=== PATIENT | female | born 1965 | race Caucasian/White ===

== ENCOUNTER → 2017-04-28 | Outpatient (CLI) | payer OTHER | END | disposition home or self-care (01) | LOC: MA 14:16 | PROC: BH02ZZZ Plain Radiography of Bilateral Breasts (ICD-10-PCS; principal; 2017-04-28) | DX: Z12.31 Encounter for screening mammogram for malignant neoplasm of breast (principal) | CPT/HCPCS: G0202 ==

== ENCOUNTER 2017-05-05 07:14 | Day surgery (SDC) | payer OTHER ==
[~2017-05-05] VITALS: Ht 177.8 cm; Wt 102.5 kg
[2017-05-05 08:07] VITALS: BP 132/71
[2017-05-05 11:47] VITALS: BP 121/84
== END 2017-05-05 11:10 | disposition home or self-care (01) ==
LOC: GI 07:14 → OR 08:30 → GI 08:30
PROVIDERS: Internal Medicine Gastroenterology
PROC: 0DJD8ZZ Inspection of Lower Intestinal Tract, Via Natural or Artificial Opening Endoscopic (ICD-10-PCS; principal; 2017-05-05 08:30)
DX: Z12.11 Encounter for screening for malignant neoplasm of colon (principal); E11.9 Type 2 diabetes mellitus without complications; Z79.84 Long term (current) use of oral hypoglycemic drugs; Z68.33 Body mass index [BMI] 33.0-33.9, adult
CPT/HCPCS: 45378; J1200; J1610; J2250; J2310; J3010; J3490

== ENCOUNTER 2017-10-20 21:43 | Emergency (ER) | payer OTHER ==
[~2017-10-20] VITALS: Ht 177.8 cm; Wt 104.3 kg
[2017-10-20 22:14] VITALS: Ht 177.8 cm; Wt 104.3 kg
[2017-10-21 00:08] VITALS: BP 143/95
== END 2017-10-21 00:08 | disposition home or self-care (01) ==
LOC: ED 21:43
DX: S80.812A Abrasion, left lower leg, initial encounter (principal); I10 Essential (primary) hypertension; E11.9 Type 2 diabetes mellitus without complications; W45.8XXA Other foreign body or object entering through skin, initial encounter; Y93.89 Activity, other specified; Y92.89 Other specified places as the place of occurrence of the external cause; Y99.8 Other external cause status

== ENCOUNTER 2017-10-27 09:53 | Inpatient (IN) | payer OTHER ==
[~2017-10-27] VITALS: Ht 177.8 cm; Wt 105.3 kg
[2017-10-27 11:37] LABS: BASOPHIL % 0.6 % (0-2); PLATELET COUNT 259 x10^3mcL (130-400); RED CELL DISTRIBUTION WIDTH 12.8 % (11.5-14.5)
[2017-10-27 11:43] LABS: CALCIUM 8.4 mg/dL (8.5-10.1); CARBON DIOXIDE 23.6 mmol/L (21-32); CHLORIDE SERUM 101 mmol/L (98-107); CREATININE SERUM 0.8 mg/dL (0.6-1.0); GFR1 > 60 mL/min; GLUCOSE SERUM 373 mg/dL (74-106); POTASSIUM SERUM 4.2 mmol/L (3.5-5.1); SODIUM SERUM 133 mmol/L (136-145)
[2017-10-27 11:48] LABS: ALBUMIN 2.8 g/dL (3.4-5.0); ALKALINE PHOSPHATASE 113 U/L (46-116); ALT/SGPT 17 U/L (14-59); AST/SGOT 8 U/L (15-37); BILIRUBIN TOTAL 0.3 mg/dL (0.20-1.00); CHOLESTEROL 227 mg/dL (<200); HDL CHOLESTEROL 74 mg/dL (40-60); TOTAL PROTEIN, SERUM 6.8 g/dL (6.4-8.2)
[2017-10-27] MEDS ORDERED: METFORMIN HCL500 MG PO (11:49)
[2017-10-27] MEDS ORDERED: METFORMIN HCL1000 MG PO (11:51)
[2017-10-27] MEDS ORDERED: CEPHALEXIN500 M1 PO (11:52)
[2017-10-27 12:13] LABS: T3 TOTAL 0.79 ng/mL
[2017-10-27 13:22] VITALS: BP 155/82
[2017-10-27 13:28] VITALS: Ht 177.8 cm; Wt 105.3 kg
[2017-10-27 14:17] LABS: MAGNESIUM 1.6 mg/dL (1.8-2.4); PHOSPHOROUS 3.5 mg/dL (2.5-4.9)
[2017-10-27 14:18] LABS: CHOLESTEROL/HDL RATIO 3.1
[2017-10-27 14:22] LABS: FREE T4 1.11 ng/dL (0.76-1.46); FREE THYROXINE INDEX 3.3 ug/dL (1.4-4.5); T4(THYROXINE) 8.7 ug/dL (4.7-13.3)
[2017-10-27 17:00] VITALS: BP 113/75
[2017-10-27 20:35] VITALS: BP 117/76
[2017-10-28 05:41] VITALS: BP 129/78
[2017-10-28 06:45] LABS: CALCIUM 8.7 mg/dL (8.5-10.1); CHLORIDE SERUM 106 mmol/L (98-107); CREATININE SERUM 0.6 mg/dL (0.6-1.0); GFR1 > 60 mL/min; GLUCOSE SERUM 150 mg/dL (74-106); MAGNESIUM 1.9 mg/dL (1.8-2.4); POTASSIUM SERUM 4.6 mmol/L (3.5-5.1); SODIUM SERUM 139 mmol/L (136-145)
[2017-10-28 06:55] LABS: PLATELET COUNT 312 x10^3mcL (130-400); RED CELL DISTRIBUTION WIDTH 12.8 % (11.5-14.5)
[2017-10-28 08:45] VITALS: BP 130/78
[2017-10-28 09:27] LABS: microscopic required? YES; urine erythrocyte TRACE (NEGATIVE)
[2017-10-28] MEDS ORDERED: CLEOCIN HCL300 MG PO (12:53)
[2017-10-28] MEDS ORDERED: BD LACTINEX1.4 MG PO (13:04)
[2017-10-28 13:41] VITALS: BP 130/78
[2017-10-28 14:00] VITALS: BP 143/78
== END 2017-10-28 17:10 | disposition home or self-care (01) | DRG 570 ==
LOC: ED 09:53 → DU 10:56
PROVIDERS: Emergency Medicine; ADMIT Family Medicine
PROC: 0JBP0ZZ Excision of Left Lower Leg Subcutaneous Tissue and Fascia, Open Approach (ICD-10-PCS; principal; 2017-10-27)
DX: L03.116 Cellulitis of left lower limb (principal); E43 Unspecified severe protein-calorie malnutrition; N17.0 Acute kidney failure with tubular necrosis; D68.69 Other thrombophilia; L97.825 Non-pressure chronic ulcer of other part of left lower leg with muscle involvement without evidence of necrosis; E11.51 Type 2 diabetes mellitus with diabetic peripheral angiopathy without gangrene; E11.65 Type 2 diabetes mellitus with hyperglycemia; I10 Essential (primary) hypertension; M19.90 Unspecified osteoarthritis, unspecified site; E11.621 Type 2 diabetes mellitus with foot ulcer; E83.42 Hypomagnesemia; E78.5 Hyperlipidemia, unspecified; Z68.32 Body mass index [BMI] 32.0-32.9, adult; Z89.421 Acquired absence of other right toe(s)
CPT/HCPCS: 83880; 84439; J0295; J1644; J1815; J2270; J2405; J3475; J3490; J7030; Q0092

== ENCOUNTER 2018-02-02 15:13 | Emergency (ER) | payer OTHER ==
[~2018-02-02] VITALS: Ht 177.8 cm; Wt 94.8 kg
[~2018-02-02 15:13] MED LIST: BD LACTINEX1.4 MG PO; CEPHALEXIN500 M1 PO; CLEOCIN HCL300 MG PO; METFORMIN HCL1000 MG PO; METFORMIN HCL500 MG PO
[2018-02-02 15:22] VITALS: Ht 177.8 cm; Wt 94.8 kg
[2018-02-02 16:39] VITALS: BP 132/80
== END 2018-02-02 16:39 | disposition home or self-care (01) ==
LOC: ED 15:13
DX: B02.9 Zoster without complications (principal); I10 Essential (primary) hypertension; E11.9 Type 2 diabetes mellitus without complications

== ENCOUNTER → 2018-03-10 | Outpatient (CLI) | payer OTHER ==
[2018-03-10 09:24] LABS: BASOPHIL % 0.6 % (0-2); PLATELET COUNT 338 x10^3mcL (130-400); RED CELL DISTRIBUTION WIDTH 12.6 % (11.5-14.5)
[2018-03-10 09:48] LABS: UA SPECIFIC GRAVITY >=1.030 (1.005-1.035); microscopic required? YES; urine erythrocyte TRACE (NEGATIVE)
[2018-03-10 09:58] LABS: ALBUMIN 3.4 g/dL (3.4-5.0); ALKALINE PHOSPHATASE 102 U/L (46-116); ALT/SGPT 22 U/L (14-59); AST/SGOT 17 U/L (15-37); BILIRUBIN TOTAL 0.4 mg/dL (0.20-1.00); CALCIUM 8.9 mg/dL (8.5-10.1); CARBON DIOXIDE 31.8 mmol/L (21-32); CHLORIDE SERUM 104 mmol/L (98-107); CREATININE SERUM 0.8 mg/dL (0.6-1.0); FREE T4 1.08 ng/dL (0.76-1.46); GFR1 > 60 mL/min; GLUCOSE SERUM 196 mg/dL (74-106); POTASSIUM SERUM 4.8 mmol/L (3.5-5.1); SODIUM SERUM 137 mmol/L (136-145); TOTAL PROTEIN, SERUM 7.3 g/dL (6.4-8.2); TRIGLYCERIDES 105 mg/dL (<150)
[2018-03-10 09:59] LABS: CHOLESTEROL 202 mg/dL (<200); CHOLESTEROL/HDL RATIO 2.7; HDL CHOLESTEROL 75 mg/dL (40-60)
== END | disposition home or self-care (01) ==
LOC: MA 08:39 → LB 08:39
DX: Z00.00 Encounter for general adult medical examination without abnormal findings (principal); E11.9 Type 2 diabetes mellitus without complications; Z13.818 Encounter for screening for other digestive system disorders
CPT/HCPCS: 84439

== ENCOUNTER → 2018-05-01 | Outpatient (CLI) | payer OTHER | END | disposition home or self-care (01) | LOC: MA 09:00 | PROC: BH02ZZZ Plain Radiography of Bilateral Breasts (ICD-10-PCS; principal; 2018-05-01) | DX: Z12.31 Encounter for screening mammogram for malignant neoplasm of breast (principal) | CPT/HCPCS: 77067 ==

== ENCOUNTER 2020-06-20 15:54 | Emergency (ER) | payer OTHER ==
[~2020-06-20] VITALS: Ht 177.8 cm; Wt 103.9 kg
[2020-06-20 16:54] VITALS: Ht 177.8 cm; Wt 103.9 kg
[2020-06-20 17:53] VITALS: BP 161/94
== END 2020-06-20 17:45 | disposition home or self-care (01) ==
LOC: ED 15:54
DX: S80.02XA Contusion of left knee, initial encounter (principal); I10 Essential (primary) hypertension; E11.9 Type 2 diabetes mellitus without complications; W18.30XA Fall on same level, unspecified, initial encounter; Y93.89 Activity, other specified; Y92.89 Other specified places as the place of occurrence of the external cause; Y99.8 Other external cause status

== ENCOUNTER → 2020-09-11 | Outpatient (CLI) | payer OTHER ==
[2020-09-12 07:32] LABS: BASOPHIL % 0.5 % (0-2); PLATELET COUNT 365 x10^3mcL (130-400); RED CELL DISTRIBUTION WIDTH 12.9 % (11.5-14.5)
[2020-09-12 07:47] LABS: ALKALINE PHOSPHATASE 135 U/L (46-116); ALT/SGPT 18 U/L (14-59); AST/SGOT 8 U/L (15-37); BILIRUBIN TOTAL 0.2 mg/dL (0.20-1.00); CALCIUM 8.8 mg/dL (8.5-10.1); CARBON DIOXIDE 28.4 mmol/L (21-32); CHLORIDE SERUM 99 mmol/L (98-107); CREATININE SERUM 0.8 mg/dL (0.6-1.0); FREE T4 0.92 ng/dL (0.76-1.46); GFR1 > 60 mL/min; GLUCOSE SERUM 333 mg/dL (74-106); HDL CHOLESTEROL 60 mg/dL (40-60); POTASSIUM SERUM 4.6 mmol/L (3.5-5.1); SODIUM SERUM 131 mmol/L (136-145)
[2020-09-12 07:48] LABS: UA SPECIFIC GRAVITY >=1.030 (1.005-1.035); microscopic required? YES; urine erythrocyte 1+ (NEGATIVE)
[2020-09-12 07:59] LABS: ALBUMIN 3.1 g/dL (3.4-5.0); CHOLESTEROL 275 mg/dL (<200); CHOLESTEROL/HDL RATIO 4.6; TRIGLYCERIDES 256 mg/dL (<150)
== END | disposition home or self-care (01) ==
LOC: MA 08:00
PROC: BH02ZZZ Plain Radiography of Bilateral Breasts (ICD-10-PCS; principal; 2020-09-11)
DX: Z12.31 Encounter for screening mammogram for malignant neoplasm of breast (principal)
CPT/HCPCS: 77067; 84439

== ENCOUNTER → 2021-01-09 | Outpatient (CLI) | payer OTHER ==
[2021-01-09 07:45] LABS: PLATELET COUNT 382 x10^3mcL (179-408); RED CELL DISTRIBUTION WIDTH 12.8 % (12.3-17.7)
[2021-01-09 08:13] LABS: microscopic required? YES; urine erythrocyte NEGATIVE (NEGATIVE)
[2021-01-09 08:59] LABS: ALKALINE PHOSPHATASE 110 U/L (46-116); ALT/SGPT 22 U/L (14-59); AST/SGOT 14 U/L (15-37); BILIRUBIN TOTAL 0.27 mg/dL (0.20-1.00); CALCIUM 8.9 mg/dL (8.5-10.1); CARBON DIOXIDE 27.2 mmol/L (21-32); CHLORIDE SERUM 100 mmol/L (98-107); CHOLESTEROL 164 mg/dL (<200); CREATININE SERUM 0.9 mg/dL (0.6-1.0); FREE T4 0.93 ng/dL (0.76-1.46); GFR1 > 60 mL/min; GLUCOSE SERUM 293 mg/dL (74-106); POTASSIUM SERUM 4.7 mmol/L (3.5-5.1); SODIUM SERUM 135 mmol/L (136-145); TOTAL PROTEIN, SERUM 7.2 g/dL (6.4-8.2); TRIGLYCERIDES 124 mg/dL (<150)
[2021-01-09 09:22] LABS: ALBUMIN 3.3 g/dL (3.4-5.0); CHOLESTEROL/HDL RATIO 2.3; HDL CHOLESTEROL 70 mg/dL (40-60)
== END | disposition home or self-care (01) ==
LOC: LB 07:19
DX: Z00.00 Encounter for general adult medical examination without abnormal findings (principal); E55.9 Vitamin D deficiency, unspecified; E11.9 Type 2 diabetes mellitus without complications; Z13.220 Encounter for screening for lipoid disorders; Z13.29 Encounter for screening for other suspected endocrine disorder
CPT/HCPCS: 84439